=== PATIENT | female | born 1945 | race Caucasian/White ===

== ENCOUNTER 2021-01-31 05:55 | Inpatient (IN) | payer MEDICARE, OTHER ==
[~2021-01-31] VITALS: Ht 154.9 cm; Wt 66.6 kg
[~2021-01-31 05:55] MED LIST: Alendronate Sod70 MG PO; Calcium Acetat667 MG PO; FAMO20 PO; FISH OIL PO; LOSARTAN POTASS25 MG PO; RESTASIS MULTI1.5 ML BOTHEYES; SYMBICORT 80-10.2 GM INH
--- NOTE | 2021-01-31 07:15 | NUR ---
Ambulatory in Day Surgery Patient confirms NPO status and agrees with scheduled surgery. History, Chart, Medications and Allergies reviewed before start of procedure. Lungs clear T/O to Auscultation. VOID X 2.
--- NOTE | 2021-01-31 08:41 | NUR ---
01/31/21 0841 Jamel Salas INTERSCALENE BLOCK DONE ON RIGHT SIDE PER DR. WILDER PRIOR TO INDUCTION. TIME OUR PERFORMED.
--- NOTE | 2021-01-31 18:21 | NUR ---
SHIFT SUMMARY PT HAS DONE VERY WELL TODAY. INITIALLY WAS STRUGGLING W/ PAIN MANAGMENT BUT NOW DOING WELL. UP AMBULATING, EATING, DRINKING, & VOIDING. WORKED W/ THERAPY. ONLY COMPLAINT IS OF HEARTBURN.
[2021-02-01 04:52] LABS: BASOPHILS ABSOLUTE AUTO 0.02 K/mm3 (0.00-0.23); BASOPHILS PERCENT AUTO 0 % (0-2); EOSINOPHILS ABSOLUTE AUTO 0.02 K/mm3 (0.00-0.68); EOSINOPHILS PERCENT AUTO 0 % (0-6); Hematocrit 32.5 % (33.0-51.0); Hemoglobin 10.7 g/dL (11.5-16.0); IMMATURE GRAN ABSOLUTE AUTO 0.05 K/mm3 (0.00-0.10); IMMATURE GRAN PERCENT AUTO 0 % (0-1); LYMPHOCYTES ABSOLUTE AUTO 2.14 K/mm3 (0.84-5.20); LYMPHOCYTES PERCENT AUTO 19 % (21-46); MONOCYTES ABSOLUTE AUTO 1.09 K/mm3 (0.16-1.47); MONOCYTES PERCENT AUTO 10 % (4-13); Mean Corpuscular HGB 28.5 pg (26.0-34.0); Mean Corpuscular HGB Conc 32.9 g/dL (31.5-36.5); Mean Corpuscular Volume 87 fL (80-100); Mean Platelet Volume 11.6 fL (9.1-12.4); NEUTROPHILS ABSOLUTE AUTO 7.81 K/mm3 (1.96-9.15); NEUTROPHILS PERCENT AUTO 70 % (41-73); Platelet Count 111 K/mm3 (150-400); RDW Coefficient Variation 13.7 % (11.7-14.2); RDW Standard Deviation 43.4 fL (35.1-46.3); Red Blood Cell Count 3.75 M/mm3 (3.80-5.20); White Blood Cell Count 11.13 K/mm3 (4.00-11.30)
[2021-02-01 05:15] LABS: Anion Gap 6 mmol/L (6-16); Blood Urea Nitrogen 9 mg/dL (8-24); Bun/Creatinine Ratio 12.9 (12.0-20.0); CO2, Blood 24 mmol/L (21-32); Chloride, Blood 107 mmol/L (98-108); Glomerular Filtration Rate >60 (60-); Glucose, Blood 101 mg/dL (70-99); Potassium, Blood 3.4 mmol/L (3.5-5.5); Sodium, Blood 137 mmol/L (136-145)
--- NOTE | 2021-02-01 06:29 | NUR ---
SHIFT SUMMARY A/OX4, UP AMBULATING HALLS WITH SBA. VOIDING WELL, TOLDERATING DIET. C/O PAIN 02/24, MEDICATED PER EMAR X2. IMMOBOLIZER TO R. SHOULDER IN PLACE, AQUACEL C/D/I. VSS, NO ACUTE CHANGES AT THIS TIME. BED IN LOWEST POSITION WITH CALL LIGHT IN REACH. WILL CONTINUE TO MONITOR AND REPORT TO ONCOMING RN.
[2021-02-01] MEDS ORDERED: OXYC5 PO (11:51)
[2021-02-01] MEDS ORDERED: ACET500 PO (11:53)
--- NOTE | 2021-02-01 12:40 | NUR ---
DISCHARGE PT UP IN ROOM, AMBULATING VERY WELL, DRESSED & EXCITED TO GO HOME. VSS, EATING, DRINKING, & VOIDING WELL. CLEARED PT & OT EASILY. REPORTS PAIN TO BE MINIMAL AND TOLERABLE. HAS IMMOBILIZER IN PLACE ON R SHOULDER. DISCHARGE INSTRUCTIONS, AQUACEL DRESSINGS, POLAR PACK, AND SCRIPT DISCUSSED AND SENT W/ PT. WHEELED OUT IN W/C.
== END 2021-02-01 12:49 | disposition home or self-care (01) | DRG 483 ==
LOC: SURS 05:55 → PRE IP 07:30 → SURS 11:43
PROVIDERS: ADMIT Orthopaedic Surgery
PROC: 0RRJ00Z Replacement of Right Shoulder Joint with Reverse Ball and Socket Synthetic Substitute, Open Approach (ICD-10-PCS; principal; 2021-01-31 07:30)
DX: M75.121 Complete rotator cuff tear or rupture of right shoulder, not specified as traumatic (principal); M19.011 Primary osteoarthritis, right shoulder; I10 Essential (primary) hypertension; Z90.49 Acquired absence of other specified parts of digestive tract
CPT/HCPCS: 36415; 73030; 80048; 83735; 85025; 94640; 94664; 94760; 97110; 97162; 97165; 97530; 97535; A9270; C1776; J0171; J0461; J0690; J0735; J1100; J1885; J2250; J2370; J2405; J2704; J2795; J3010; J7120

== ENCOUNTER 2022-06-14 08:19 | Day surgery (SDC) | payer MEDICARE, OTHER ==
[~2022-06-14] VITALS: Ht 154.9 cm; Wt 64.0 kg
[~2022-06-14 08:19] MED LIST changes: +ACET500 PO; +OXYC5 PO
--- NOTE | 2022-06-14 10:15 | NUR ---
06/14/22 1015 Sonam Rdz 1 MG EPI (1MG/ML) ADDED TO THE FIRST BAG OF FLUIDS PER ORDER FOR IRRIGATION AT [facility]. 0.25 ML EPI (1MG/ML) MIXED WITH NACL 50 MLS PER ORDER TO MAKE EPI 1:200,000 FOR INJECTION AT [facility] BY DR CHÁVEZ. 10 MLS INJECTED.
== END 2022-06-14 13:28 | disposition home or self-care (01) ==
LOC: ORSCSDS 08:19
PROVIDERS: Orthopaedic Surgery
PROC: 0LM24ZZ Reattachment of Left Shoulder Tendon, Percutaneous Endoscopic Approach (ICD-10-PCS; principal; 2022-06-14 09:30)
PROC: 0RNK4ZZ Release Left Shoulder Joint, Percutaneous Endoscopic Approach (ICD-10-PCS; principal; 2022-06-14 09:30)
DX: M75.122 Complete rotator cuff tear or rupture of left shoulder, not specified as traumatic (principal); S46.212A Strain of muscle, fascia and tendon of other parts of biceps, left arm, initial encounter; I10 Essential (primary) hypertension; G47.33 Obstructive sleep apnea (adult) (pediatric); J44.9 Chronic obstructive pulmonary disease, unspecified; Z87.891 Personal history of nicotine dependence; K21.9 Gastro-esophageal reflux disease without esophagitis; F32.A Depression, unspecified; Z79.899 Other long term (current) drug therapy
CPT/HCPCS: C1713; J0171; J0690; J1100; J2250; J2370; J2405; J2704; J3010; J7120